=== PATIENT | male | born 1980 | race Caucasian/White ===

== ENCOUNTER 2016-11-06 03:16 | Emergency (ER) | payer SELFPAY ==
[~2016-11-06] VITALS: Ht 180.3 cm; Wt 80.0 kg
[2016-11-06 03:19] VITALS: BP 135/83; PULSE 81; RESP 16; TEMP 98.7; O2SAT 99
[2016-11-06] MEDS ORDERED: DALBAVANCIN INJ 1,500 MG in DEXTROSE 5% IN WATE 500 ML INJ 500 ML IV STA ×2 (04:54)
[2016-11-06] MEDS ORDERED: ASP: Location of Dalbavancin administration OTHER ONE (05:00)
[2016-11-06] MEDS ORDERED: ASP: Does not meet inpatient admission criteria OTHER ONE (05:00)
[2016-11-06] MEDS ORDERED: MISCELLANEOUS PHARMACY INFORMATION XX ONE (05:00)
[2016-11-06] MEDS ORDERED: ASP: Only reason for admit - IV antibiotics OTHER ONE (05:00)
[2016-11-06] MEDS ORDERED: ASP: No known hypersensitivity to Vanco, Telavancin, Dalbavancin OTHER ONE (05:00)
--- NOTE | 2016-11-06 05:01 | PD ---
HPI Chief Complaint: Skin Problem Time Seen by Provider: 04:44 Travel History International Travel<30 days: No Contact w/Intl Traveler<30days: No Traveled to known affect area: No History of Present Illness HPI 36-year-old man presents emergency department with multifocal skin infection. He states he's had multiple areas of scabbing with erythema redness and swelling and purulent drainage, but his left arm right arm and both legs over the past several days. No significant fevers or chills. States he had similar symptoms several years ago that resolved by with antibiotic treatment.Explicitly denies IV drug use. Does do a lot of outdoor work. History Past Medical History Medical History: Denies Significant Hx Tetanus Vaccination: Unknown Social History Alcohol Use: No (quit drinking pt states) Tobacco Use: Yes (1 PPD) Allergies-Medications (Allergen,Severity, Reaction): Coded Allergies: No Known Allergies (Unverified , 03/16/14) Reported Meds & Prescriptions Reported Meds & Active Scripts Active No Active Prescriptions or Reported Medications Review of Systems Except as stated in HPI: all other systems reviewed are Neg Physical Exam Narrative GENERAL: Well-appearing 36-year-old man, no acute distress. SKIN: Focused skin assessment warm/dry. NECK: Trachea midline. No JVD. CARDIOVASCULAR: Regular rate and rhythm. No murmur appreciated. RESPIRATORY: No accessory muscle use. Clear to auscultation. Breath sounds equal bilaterally. GASTROINTESTINAL: Abdomen soft, non-tender, nondistended. Hepatic and splenic margins not palpable. MUSCULOSKELETAL: No obvious deformities. No edema. He is multiple areas of skin infection especially on the right arm with a large area purulent scabbing ulceration. Includes several areas on the legs, and arms at various stages of various sizes. Also have some surrounding erythema and cellulitis. NEUROLOGICAL: Awake and alert. No obvious cranial nerve deficits. Motor grossly within normal limits. Normal speech. PSYCHIATRIC: Appropriate mood and affect; insight and judgment normal. Data Data Last Documented VS Vital Signs Date Time Temp Pulse Resp B/P (MAP) Pulse Ox O2 Delivery O2 Flow Rate FiO2 11/06/16 03:19 98.7 81 16 135/83 (100) 99 Room Air Orders Orders Complete Blood Count With Diff (11/06/16 04:54) Comprehensive Metabolic Panel (11/06/16 04:54) Asp:No Reaction To [facility]/Vanc (Asp Crit (11/06/16 05:00) Asp: Does Not Meet Inpt Admit (Asp Crit: (11/06/16 05:00) Asp: Iv Antibiotics Admit Only (Asp Crit (11/06/16 05:00) Asp: Location Of [facility] Admin (Asp Crit: (11/06/16 05:00) [facility] [place] [facility] ([facility] [place] [facility] (11/06/16 05:00) Dalbavancin Inj (Dalvance Inj) (11/06/16 04:54) Wound Culture And Gram Stain (11/06/16 04:54) MDM Medical Decision Making Medical Screen Exam Complete: Yes Emergency Medical Condition: Yes Differential Diagnosis Multifocal cellulitis, embolic disease, spider bite, other Narrative Course Medical decision making 36-year-old male multifocal skin infection. Denies IV drug use but possibly related to intramuscular injection. Possibly related to adverse effect of drugs. Possibly related to unusual or compartment or more unusual fungal or atypical skin infection. We'll try dose of doubt bands given patient's poor social situation and high risk for outpatient failure and med noncompliance. FINAL: Patient irritated at the notion of getting a single dose of IV antibiotics and not being admitted. Became a little bit agitated. States that he is sure that "one pill" is not can work for him and that he was admitted in the past. States it is getting onto the parking lot and: Ambulance to take him to "a real hospital". I tried explaining to him the technology behind dalvance and it's equivalents to multidose IV antibiotics but he seems to have artery made up his mind that it would not work. He left without any treatment. Diagnosis Primary Impression: Soft tissue infection Scripts No Active Prescriptions or Reported Meds Disposition: 07 AGAINST MEDICAL ADVICE Dylan Ramos MD Nov 06, 2016 05:01
== END 2016-11-06 06:12 | disposition left against medical advice (07) ==
LOC: NEPC 03:16
DX: L08.89 Other specified local infections of the skin and subcutaneous tissue (principal); B95.61 Methicillin susceptible Staphylococcus aureus infection as the cause of diseases classified elsewhere; B95.0 Streptococcus, group A, as the cause of diseases classified elsewhere
CPT/HCPCS: 86403; 87070; 87186; 99281

== ENCOUNTER 2017-04-12 05:36 | Emergency (ER) | payer SELFPAY ==
[~2017-04-12] VITALS: Ht 180.3 cm; Wt 80.0 kg
[2017-04-12 05:57] LABS: AUTOMATED NEUTROPHIL # 7.6 TH/MM3 (1.8-7.7); BASOPHIL # 0.1 TH/MM3 (0-0.2); BASOPHIL % 0.9 % (0.0-2.0); EOSINOPHIL # 0.4 TH/MM3 (0-0.4); EOSINOPHIL % 3.6 % (0.0-4.0); HEMATOCRIT 42.7 % (39.0-51.0); HEMOGLOBIN 14.7 GM/DL (13.0-17.0); LYMPH % 28.8 % (9.0-44.0); LYMPHOCYTE # 3.5 TH/MM3 (1.0-4.8); MEAN CELL VOLUME 90.2 FL (80.0-100.0); MEAN CORPUSCULAR HGB CONC 34.4 % (32.0-36.0); MEAN PLATELET VOLUME 6.7 FL (7.0-11.0); MONO % 5.3 % (0.0-8.0); MONOCYTE # 0.6 TH/MM3 (0-0.9); NEUT % 61.4 % (16.0-70.0); PLATELET COUNT 319 TH/MM3 (150-450); RED BLOOD COUNT 4.74 MIL/MM3 (4.50-5.90); RED CELL DISTRIBUTION WIDTH 13.5 % (11.6-17.2); WHITE BLOOD COUNT 12.3 TH/MM3 (4.0-11.0)
[2017-04-12] MEDS ORDERED: IOHEXOL 350 MG/ML 10 ML VIAL (for RAD DIAG) IVCONTRAST ONE (06:00)
[2017-04-12] MEDS ORDERED: DIPHTH/TETANUS/ACEL PERTUSSIS (BOOSTER) 0.5 ML VIAL/PFS IM ONE (06:02)
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
[2017-04-12 06:19] VITALS: BP 132/90; PULSE 98; RESP 18; TEMP 98.1; O2SAT 98; O2SAT 99
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
[2017-04-12] MEDS ORDERED: HALOPERIDOL LACTATE 5 MG/ML AMP IM ONE (07:00)
[2017-04-12] MEDS ORDERED: diphenhydrAMINE HCL 50 MG/ML VIAL IV PUSH ONE (07:00)
[2017-04-12] MEDS ORDERED: LORazepam 2 MG/ML VIAL IV PUSH ONE (07:00)
[2017-04-12] MEDS ORDERED: LIDOCAINE HCL 1% 50 ML VIAL INFIL ONE (07:45)
[2017-04-12] MEDS ORDERED: LIDOCAINE 1%/EPINEPHrine 1:100,000 SOLN 30 ML VIAL ONE (07:49)
[2017-04-12] MEDS ORDERED: KETAMINE HCL 500 MG/5 ML VIAL ONE (07:51)
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
[2017-04-12] MEDS ORDERED: KETAMINE HCL 500 MG/10 ML VIAL IV ONE (09:00)
[2017-04-12 09:06] VITALS: BP 122/70
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
[2017-04-12 11:15] VITALS: BP 113/56; PULSE 67; RESP 17; O2SAT 98
== END 2017-04-12 15:05 | disposition home or self-care (01) ==
LOC: EDBD → NEPI 05:36 → MERGE 05:36 → NEDAMB 15:05
DX: S41.112A Laceration without foreign body of left upper arm, initial encounter (principal); S21.112A Laceration without foreign body of left front wall of thorax without penetration into thoracic cavity, initial encounter; F22 Delusional disorders; R45.851 Suicidal ideations; R45.850 Homicidal ideations; X99.1XXA Assault by knife, initial encounter; Y90.6 Blood alcohol level of 120-199 mg/100 ml
CPT/HCPCS: 12034; 71045; 71260; 80048; 80307; 85025; 85610; 85730; 86850; 86900; 86901; 96372; 96374; 96375; 99285; 99291; J1200; J1630; J2060; Q9967; 90471; 90715; G0390

== ENCOUNTER 2017-05-01 07:06 | Emergency (ER) | payer SELFPAY ==
[~2017-05-01] VITALS: Ht 180.3 cm; Wt 80.0 kg
[2017-05-01 07:17] VITALS: BP 115/56; PULSE 84; RESP 19; TEMP 98.3; O2SAT 99
[2017-05-01] MEDS ORDERED: CYCL10TA PO (09:21)
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
== END 2017-05-01 09:40 | disposition home or self-care (01) ==
LOC: NEPD 07:06
DX: M54.9 Dorsalgia, unspecified (principal); Z48.02 Encounter for removal of sutures
CPT/HCPCS: 99283